=== PATIENT | female | born 1950 | race Caucasian/White ===

== ENCOUNTER → 2024-06-26 07:58 | Outpatient (REF) | payer MEDICARE, OTHER, SELFPAY ==
[2024-06-26 08:57] LABS: % Basophils 1.8 % (0-2); % Eosinophils 4.4 % (0-6); % Immature Granulocytes 1.8 % (0-0.5); % Lymphocytes 27.2 % (20.5-51.1); % Monocytes 8.5 % (1.7-9.3); % Neutrophils 56.3 % (42.2-75.2); Absolute Basophils 0.1 10^3/uL (0-0.2); Absolute Eosinophils 0.2 10^3/uL (0-0.7); Absolute Immature Granulocytes 0.1 10^3/uL (0-0.05); Absolute Lymphocytes 1.1 10^3/uL (1.2-3.4); Absolute Monocytes 0.3 10^3/uL (0.1-0.6); Absolute Neutrophils 2.2 10^3/uL (1.4-6.5); Hematocrit 38.6 % (37.0-47.0); Hemoglobin 12.4 g/dL (12.0-16.0); Mean Corp Hgb Conc. 32.1 g/dL (33.0-37.0); Mean Corpuscular Hgb 29.7 pg (27.0-31.0); Mean Corpuscular Volume 92.3 fL (81.0-99.0); Mean Platelet Volume 9.9 fL (7.4-10.4); Nucleated Red Blood Cells % 0 %; Platelet Count 219 10^3/uL (130-400); Red Blood Cell Count 4.18 10^6/uL (4.20-5.40); Red Cell Dist. Width 13.4 % (11.5-14.5); White Blood Cell Count 3.9 10^3/uL (4.8-10.8)
[2024-06-26 09:31] LABS: ALT (SGPT) 19 U/L (0-35); AST (SGOT) 43 U/L (14-36); Albumin 5.4 g/dl (3.5-5.0); Alkaline Phosphatase 103 U/L (38-126); Blood Urea Nitrogen 18 mg/dl (7-17); Calcium 9.9 mg/dl (8.4-10.2); Carbon Dioxide 26 mmol/L (22-30); Chloride 99 mmol/L (98-107); Glucose 119 mg/dl (70-99); HDL Cholesterol 79 mg/dl; Iron 115 ug/dl (37-170); LDL Cholesterol, Calculated 79 mg/dl; Potassium 4.7 mmol/L (3.5-5.1); Sodium 139 mmol/L (135-145); Total Bilirubin 0.9 mg/dl (0.2-1.3); Total Cholesterol 183 mg/dl (50-199); Total Protein 9.8 g/dl (6.3-8.2); Triglyceride 129 mg/dl (10-149); Very Low Density Lipoprotein 25 mg/dl (0-30); eGFR > 60.00
[2024-06-26 10:07] LABS: Ferritin 31.7 ng/ml (11.1-264.0)
[2024-06-26 11:06] LABS: Microalbumin, Random Urine 3.4 mg/dl (0.6-1.7); Microalbumin/creatinine Ratio 47.8 mg/g
[2024-06-26 11:35] LABS: Percent Saturation 25 % (20-50); Total Iron Binding Capacity 456 ug/dl (265-497)
[2024-06-27 09:27] LABS: Glycohemoglobin (HgbA1c) 5.8 % (4.0-5.6)
== END ==
LOC: REG 07:58
PROVIDERS: ATTENDING PHYSICIAN Family Medicine
DX: E78.2 Mixed hyperlipidemia (principal); D64.89 Other specified anemias; E11.9 Type 2 diabetes mellitus without complications; A08.4 Viral intestinal infection, unspecified
CPT/HCPCS: 36415; 80053; 80061; 82043; 82570; 82728; 83036; 83540; 83550; 85025

== ENCOUNTER → 2024-07-26 08:04 | Outpatient (REF) | payer MEDICARE, OTHER, SELFPAY ==
[2024-07-26 09:14] LABS: % Basophils 1.3 % (0-2); % Eosinophils 4.3 % (0-6); % Immature Granulocytes 0.3 % (0-0.5); % Lymphocytes 29.6 % (20.5-51.1); % Monocytes 7.5 % (1.7-9.3); Absolute Basophils 0.1 10^3/uL (0-0.2); Absolute Eosinophils 0.2 10^3/uL (0-0.7); Absolute Lymphocytes 1.1 10^3/uL (1.2-3.4); Absolute Monocytes 0.3 10^3/uL (0.1-0.6); Absolute Neutrophils 2.1 10^3/uL (1.4-6.5); Hematocrit 35.1 % (37.0-47.0); Hemoglobin 11.1 g/dL (12.0-16.0); Mean Corp Hgb Conc. 31.6 g/dL (33.0-37.0); Mean Corpuscular Hgb 29.1 pg (27.0-31.0); Mean Corpuscular Volume 92.1 fL (81.0-99.0); Nucleated Red Blood Cells % 0 %; Platelet Count 194 10^3/uL (130-400); Red Blood Cell Count 3.81 10^6/uL (4.20-5.40); White Blood Cell Count 3.8 10^3/uL (4.8-10.8)
[2024-07-26 09:57] LABS: ALT (SGPT) 15 U/L (0-35); AST (SGOT) 36 U/L (14-36); Albumin 4.3 g/dl (3.5-5.0); Alkaline Phosphatase 98 U/L (38-126); Blood Urea Nitrogen 13 mg/dl (7-17); Carbon Dioxide 28 mmol/L (22-30); Chloride 103 mmol/L (98-107); Creatine Phosphokinase 93 U/L (30-135); Glucose 108 mg/dl (70-99); Potassium 4.5 mmol/L (3.5-5.1); Sodium 140 mmol/L (135-145); Total Bilirubin 0.8 mg/dl (0.2-1.3); Total Protein 7.9 g/dl (6.3-8.2); eGFR > 60.00
[2024-07-26 12:44] LABS: Erythrocyte Sed Rate 42 mm/hour (0-20)
== END ==
LOC: REG 08:04
PROVIDERS: ATTENDING PHYSICIAN Family Medicine
DX: M33.22 Polymyositis with myopathy (principal); D64.89 Other specified anemias; R77.9 Abnormality of plasma protein, unspecified
CPT/HCPCS: 36415; 80053; 82550; 84155; 84165; 85025; 85652

== ENCOUNTER → 2024-07-30 10:58 | Outpatient (REF) | payer MEDICARE, OTHER, SELFPAY | LOC: HWRCS 10:58 | PROVIDERS: ATTENDING PHYSICIAN Family Medicine | DX: I35.0 Nonrheumatic aortic (valve) stenosis (principal) | CPT/HCPCS: 93306 ==

== ENCOUNTER 2024-12-10 22:28 | Inpatient (IN) | payer MEDICARE, OTHER, SELFPAY ==
[2024-12-10 16:34] VITALS: BP 169/68
[2024-12-10 17:06] LABS: Hematocrit 31.3 % (37.0-47.0); Hemoglobin 10.4 g/dL (12.0-16.0); Mean Corp Hgb Conc. 33.2 g/dL (33.0-37.0); Mean Corpuscular Volume 88.4 fL (81.0-99.0); Nucleated Red Blood Cells % 0 %; Platelet Count 236 10^3/uL (130-400); Red Cell Dist. Width 14.3 % (11.5-14.5)
[2024-12-10 17:17] LABS: ALT (SGPT) 17 U/L (0-35); AST (SGOT) 36 U/L (14-36); Albumin 4.3 g/dl (3.5-5.0); Alkaline Phosphatase 89 U/L (38-126); Blood Urea Nitrogen 17 mg/dl (7-17); Calcium 9.2 mg/dl (8.4-10.2); Carbon Dioxide 25 mmol/L (22-30); Chloride 100 mmol/L (98-107); Glucose 154 mg/dl (70-99); Potassium 4.5 mmol/L (3.5-5.1); Sodium 133 mmol/L (135-145); Total Protein 7.7 g/dl (6.3-8.2); eGFR > 60.00
[2024-12-10 17:27] LABS: Troponin I 0.021 ng/ml
--- NOTE | 2024-12-10 18:51 | ED.GENMED ---
History of Present Illness
General
Chief Complaint: Breathing Problem
Source: patient
Exam Limitations: none
Time Seen by Provider: 12/10/24 18:25
History of Present Illness
History of Present Illness:
74-year-old female type II diabetic on metformin hypertensive on ZEYAD inhibitor, hyperlipidemia, no history of A-fib nor CAD nor clotting, presents with shortness of breath, started a few nights ago recently was on a 4 to 5-hour car trip lower
extremity edema left greater than right with pain in her left calf no fevers no cough
Past History
Past History
ED Past Medical History: HTN, Hypercholesterolemia and NIDDM; Negative Arrthythmia
ED Past Surgical History: Orthopedic
Social History
Tobacco: Other
Alcohol: None
Drug: None
Living: with family
Employment: Retired
Review of Systems
Review of Systems
All Other Systems: Not applicable
Constitutional: Denies fever or fatigue
Respiratory: Reports trouble breathing
Cardiac: Reports chest pain
ABD/GI: Reports no symptoms
: Reports no symptoms
Musculoskeletal: Reports muscle stiffness and edema
Endocrine: Reports no symptoms
Hematologic/Lymphatic: Reports no symptoms
Psychiatric: Reports no symptoms
Phy Exam
Physical Exam
Physical Exam:
Physical Exam
General: Elderly female sitting upright
Neck: No jaundice
Heart: Regular systolic ejection murmur
Lungs: no acute respiratory distress. Crackles at the bases
Abdomen: Nontender
Neuro: alert and oriented. no focal neurological deficits
Skin: no rash
Psychiatric: well kept. interactive and cooperative
Extremities: Edema left greater than
Scores
Heart Failure Risk
Heart Failure Risk Score: Yes
History of Stroke or TIA: No
History of intubation for respiratory distress: No
Heart rate on ED arrival >/= 110: No
SaO2 <90% on arrival on room air: No
HR >/=110 during 3min walk test (or too ill to perform test): Yes
ECG has acute ischemic changes: No
Urea >/=12mmol/L (BUN 33.6mg/dL): No
Serum CO2>/=35mmol/L: No
Troponin I or T elevated to GA Level (0.4mg/dL): No
NT-proBNP >/=5,000ng/L (5,000pg/ml): No
HF Risk Score: 2
Admission Status: MEDIUM RISK 9.2% Consider observation or discharge to home with homecare & f/u visit to PCP/[employer], or SNF for treatment
Course
Orders/Labs/Results
Orders:
Orders
12/10/24 16:41
EKG [Electrocardiogram (*1)] Urgent
Reason for Study: Chest Pain
12/10/24 16:42
CT Chest PE Study Urgent
Comment:
Reason For Exam: pleuritic R CP
EKG- Treatment ONCE
12/10/24 16:49
Complete Blood Count/With Diff Urgent
Comprehensive Metabolic Panel Urgent
NT-proBNP Urgent
Comment: ADD ON
Troponin I Urgent
12/10/24 18:37
Add On- LAB Urgent
Tests Added?: pBNP
US Periph Venous LOWER Ext LT Urgent
Comment:
Reason For Exam: swelling
12/10/24 20:26
Electrocardiogram (*1) Urgent
Reason for Study: Shortness of Breath
EKG- Treatment ONCE
12/10/24 20:45
Furosemide [Lasix] 40 mg IV NOW STA
12/10/24 22:13
Admit/Transfer Patient As Directed
Co-Sign Provider:
Level of Care: Inpatient admission
Assign to:: Telemetry
Physician / Group: Pablito Churchill
Diagnosis: acute heart failure, atrial fibrillation
Reason for Telemetry: Acute Heart Failure
Date to Stop Telemetry: 12/13/24
Time to Stop Telemetry: 11:00
Reason for Hospitalization: acute heart failure, atrial fibrillation
Expected length of stay greater than two midnights?: Yes
ELOS- Estimated Length of Stay in days: 3
I certify the patient meets the requirements for IP care: Yes
PRN Pain Medication Management As Directed
May give lesser potent ordered pain med per pt: Yes
preference::
Protocol:: Medication orders for pain may be administered in a
manner that supports deferring to patient preference
when the pt is:
- Requesting an ordered lesser potent pain medication.
Least to most potent pain medications are defined
as: acetaminophen < NSAID < tramadol < opioids
(morphine, oxycodone, hydromorphone).
- Requesting a lesser dose of the same medication IF
ORDERED.
- Requesting a less intrusive route of administration
if both routes are prescribed by the provider (PO <
IV).
12/10/24 22:14
Code Status As Directed
Resuscitation Status: Full Code
12/13/24 11:00
DC Protocol for Telemetry ONCE
Abnormal Lab Results
12/10/24
16:49
WBC 4.7 L 10^3/uL
(4.8-10.8)
RBC 3.54 L 10^6/uL
(4.20-5.40)
Hgb 10.4 L g/dL
(12.0-16.0)
Hct 31.3 L %
(37.0-47.0)
Sodium 133 L mmol/L
(135-145)
Glucose 154 H mg/dl
(70-99)
12/10/24 16:49
12/10/24 16:49
Vital Signs
Initial and Last Documented VS:
Initial Vital Signs
Temp Pulse Resp BP Pulse Ox
97.7 F 83 18 169/68 99
12/10/24 16:34 12/10/24 16:34 12/10/24 16:34 12/10/24 16:34 12/10/24 16:34
Last Documented Vital Signs
Temp Pulse Resp BP Pulse Ox
97.7 F 86 13 151/58 98
12/10/24 16:34 12/10/24 20:56 12/10/24 20:30 12/10/24 20:56 12/10/24 19:30
MDM/Problems Addressed
Differential Diagnosis Includes:
DVT PE question airway failure and pneumothorax pneumonia heart failure
MDM/Problems Addressed:
Shortness of breath leg swelling
Chronic conditions affecting care: DM and HTN
Acute Exacerbation and/or Progression of Chronic Illness: DM and HTN
*Radiology
Radiology exam reviewed: radiology read reviewed
*Pulse Oximetry
SaO2: 99
Oxygen Mode of Delivery: Room air
Patient hypoxic: no
*Critical Care Note
Total Time (30-74mins, 75-104mins- exclusive of procedures): Not Applicable
Update Note
Update Note:
8:[address] chest report noted Doppler report noted troponin noted proBNP noted EKG noted
I am not 100% certain but suspect she is in A-fib with a controlled rate here, does have a murmur prior echo noted has slowly progressive AAS at this point will start on diuretic consideration for anticoagulation low threshold to admit
ED Attending Note
-
Portions of this chart may have been created with voice recognition software.� Occasional wrong word or��sound alike� substitutions may have occurred due to the inherent limitations of voice recognition software.
Discharge Plan
Departure
Patient Disposition: Admit
Date of Disposition: 12/10/24
Time of Disposition: 20:47
Admit to: Telemetry
Presentation/result/management discussed w/ accepting MD/DO: Hospitalist
Patient with high blood pressure during this ER visit?: No
Condition: Good
Covid-19: Not Applicable
Discharge Problem:
Congestive heart failure (CHF), Atrial fibrillation due to heart valve disorder
Interventions
Interventions:
*Risk Screen - Suicide Last Done: 12/10/24 16:34
*General Assessment Last Done: 12/10/24 16:34
*Neglect/Abuse Screening Last Done: 12/10/24 20:33
*ED- Fall Risk Assessment Last Done: 12/10/24 20:33
*ED COVID-19 Vaccine History Last Done: 12/10/24 16:34
ED- Cardiac Assessment Last Done: 12/10/24 20:33
ED- Pulmonary Assessment Last Done: 12/10/24 20:33
[2024-12-10 19:24] VITALS: BP 134/45
[2024-12-10 19:29] VITALS: BMI 30.5
[2024-12-10] MEDS: LASIX 40 MG IV (20:56)
[2024-12-10 20:57] VITALS: BP 151/58
--- NOTE | 2024-12-10 21:20 | HPS.HSE ---
Family Physician
-
Family Physician: Paul Plascencia
Chief Complaint
-
shortness of breath
History of Present Illness
Patient is a 74-year-old female with past medical history significant for hypertension, hyperlipidemia, DM II and GERD who presented to [facility] ED for evaluation of shortness of breath. Patient reports being woken from her sleep on Tuesday night into
Tuesday with shortness of breath, inability to take a deep breath and right sided chest pain that radiated to right shoulder and jawline. She reports symptoms took some time to resolve but she took weekend to just relax. She reports recent trip
with friends and spending 4-5 hours in the car. Reported bilateral lower extremity edema, L>R, dry cough for a few weeks and a 5-6 pound weight gain over the past few weeks. Patient denies any person history of heart failure and/or atrial
fibrillation. When questioned patient states that she has had palpitations intemittently at times, she believes when it happens after drinking wine. Patient denies any recent illness, fever, chills, nausea, vomiting, dizziness or changes in bowel or
urine.
Medical History
Past Medical History
Past Medical History: Reports Other
Additional Past Medical History:
hypertension
hyperlipidemia
DM II
GERD
Hx polymyositis
Past Surgical History: Reports Other
Additional Past Surgical History:
ORIF left hip
ORIF right elbow
Hardware removal right elbow
MOHS left hand - sqamous scell 11/2024
Social History
Tobacco: Non-smoker
Alcohol: Occasional
Drug: None
Living: Alone
Employment: Retired
Family History
Family History: Other (Father: DM, CHF; Mother: cirrhosis; Sister: ETOH dependency; Brother: CHF, metastatic melanoma )
Allergies / Home Medications
Allergies reflects when Allergies were last updated in [facility].
Home Medications with original date entered in [facility]
Allergy/Medication List:
Allergies
Allergy/AdvReac Type Severity Reaction Status Date / Time
No Known Allergies Allergy Verified 12/10/24 16:39
Home Medications
atorvastatin 40 mg tablet 40 mg PO DAILY 04/16/18
pioglitazone 15 mg-metformin 500 mg tablet (Actoplus MET) 1 tab PO BID 04/16/18
lisinopril 10 mg tablet 10 mg PO DAILY 12/10/24
metformin 500 mg tablet 500 mg PO BID 12/10/24
omeprazole 20 mg tablet,delayed release 20 mg PO DAILY 12/10/24
Review of Systems
-
History Source: Patient
Constitutional: Reports Weight Gain and Sleep Disturbance
EENT: Reports No Symptoms
Respiratory: Reports Cough and Trouble Breathing (dyspnea at rest, hard to take deep breath )
Cardiac: Reports Chest Pain (radiating to right shoulder and jaw line )
Abdomen/GI: Reports No Symptoms
: Reports No Symptoms
Musculoskeletal: Reports No Symptoms
Skin: Reports No Symptoms
Neurological: Reports No Symptoms
Endocrine: Reports No Symptoms
Hematologic/Lymphatic: Reports No Symptoms
Psych: Reports No Symptoms
Physical Exam
Vital Signs
Vital Signs
Temp Pulse Resp BP Pulse Ox
97.7 F 86 13 151/58 98
12/10/24 16:34 12/10/24 20:56 12/10/24 20:30 12/10/24 20:56 12/10/24 19:30
Physical Exam
General: Well Developed, Well Nourished, No Apparent Distress and Obese
HEENT: NormoCephalic, Moist mucous membranes and Atraumatic
Respiratory: Clear, Crackles and Non Labored Respirations
Cardiac: Irregular Rhythm and Murmur
GI: Soft, Non Tender, Non Distended and Normal Bowel Sounds
Rectal: Deferred by Provider
Musculoskeletal: No Clubbing, No Cyanosis, Edema, Left Lower Extremity (mild ) and Edema, Right Lower Extremity (mild)
Skin: Warm, Rash and IV/Catheter Site
Neuro: Awake, AO x 3 and Nonfocal/grossly intact
Psych: Calm and Intact Judgment/Insight
Laboratory Results
-
12/10/24 16:49
12/10/24 16:49
Laboratory Results
Total Bilirubin 1.0 mg/dl (0.2-1.3) 12/10/24 16:49
AST 36 U/L (14-36) 12/10/24 16:49
ALT 17 U/L (0-35) 12/10/24 16:49
Alkaline Phosphatase 89 U/L (38-126) 12/10/24 16:49
Troponin I 0.021 ng/ml 12/10/24 16:49
Data Reviewed
-
CT Scan: Report Reviewed by me (Chest: 1. No evidence of pulmonary embolism. 2. No significant acute abnormality identified in the chest, as described above. 3. Mild bibasilar subpleural fibrotic change. Findings could reflect early changes of
chronic interstitial lung disease.)
Ultrasound: Report Reviewed by me (LLE: 1. No evidence of deep venous thrombosis in the left lower extremity as described above.)
Lab Data: Labs Reviewed by me (hgb 10.4, hct 31.3, Na+133, trop 0.021, pBNP 2590)
Impression/Plan
-
IMPRESSION/PLAN:
#shortness of breath likely 2/2 acute heart failure
hgb 10.4, hct 31.3, Na+133, trop 0.021, pBNP 2590
LLE US: 1. No evidence of deep venous thrombosis in the left lower extremity as described above.
Chest CT: 1. No evidence of pulmonary embolism.
2. No significant acute abnormality identified in the chest, as described above.
3. Mild bibasilar subpleural fibrotic change. Findings could reflect early changes of chronic interstitial lung disease.
EKG: ATRIAL FIBRILLATION
NONSPECIFIC ST AND T WAVE ABNORMALITY
- Admit to telemetry
- Consult Cardiology
- IV Lasix daily
- daily weights
- I & Os
#hypertension
- continue lisinopril
#hyperlipidemia
- continue atorvastatin
#DM II
- hold metformin
- AccuCheck AC & HS
- SSI
#GERD
- continue omeprazole
Code status: full code
DVT Prophylaxis: Lovenox sq
[2024-12-10 22:00] VITALS: BP 138/56
--- NOTE | 2024-12-10 22:49 | W.PN.UPDATE ---
Update Note
Progress Note Update
This note serves as an addendum to the H&P by welt slasher NATALIYA
Annemarie Sims
HPI
74F HX hypertension, hyperlipidemia, DM II and GERD een at ER
- evaluation of shortness of breath.
- woken from her sleep on Tuesday night into Tuesday with shortness of breath,
- inability to take a deep breath and right sided chest pain that radiated to right shoulder and jawline.
- recent trip with friends and spending 4-5 hours in the car.
- Reported bilateral lower extremity edema, L>R,
- dry cough for a few weeks a
- 5-6 pound weight gain over the past few weeks. P
Patient denies any person history of heart failure and/or atrial fibrillation.
Relevant VS
PE
Gen: NAD
Neck: supple
Lungs: Crackles and Non Labored Respirations
Cor: Irregular Rhythm and Murmur
Abdomen: Soft, Non Tender, Non Distended
VIDEO SOFTWARE ENGINEER: NFND
MS: Edema, Left Lower Extremity (mild ) and Edema, Right Lower Extremity (mild)
Relevant Data
LLEx US
No evidence of deep venous thrombosis in the left lower extremity as described above.
CT Chest PE Study
1. No evidence of pulmonary embolism.
2. No significant acute abnormality identified in the chest, as described above.
3. Mild bibasilar subpleural fibrotic change. Findings could reflect early changes of chronic interstitial lung disease.
07/30/24 TTE
LVEF s 50-55%.
Normal right ventricular size and function.
No mitral regurgitation is seen.
Calcified aortic valve.
Peak/mean gradients across the aortic valve are 37/20 mmHg.
The aortic valve by the Continuity equation is calculated at 1.1cm2.
Mild aortic valve stenosis. No aortic regurgitation is seen.
Trace tricuspid regurgitation.
Estimated pulmonary artery pressure of 20-25 mmHg. Assuming a right atrial pressure of 3 mmHg.
Compared to prior study 02/02/2023 aortic valve area previously calculated at 0.8 to 1 cm2 now 1.1 cm2. Aortic valve gradients have increased from prior peak/mean 25/17 mmHg to 37/20 mmHg.
ASSESSMENT & PLAN
Suspect new onset acute HF presumed HFpEF
Vol expansion
trop 0.021, pro BNP 2590
- IV Lasix
- on [employer] Lisinopril
- daily wt
- DCA card consult
A Fib - presumed new onset
- VR 70s
- NEG CTC for acute PE
- Await Card Evaluation
Bn HTN
- continue lisinopril
HLD
- continue atorvastatin
T2DM
- hold metformin
- AccuCheck AC & HS
- SSI
DVT Px: LMWH
Full code
IP TLM
[2024-12-11] VITALS (10 sets, daily range): BP systolic 92–140; BP diastolic 45–85; BMI 30.5; BMI 30.7
[2024-12-11] MEDS: TYLENOL 650 MG PO ×4 (00:04→20:29)
[2024-12-11 00:13] LABS: Glucose - Point of Care 128 mg/dl (70-99)
--- NOTE | 2024-12-11 02:27 | DOWNTIME ---
There was a Animating Touch Client Stave Hewer Downtime on 12/11/2024 from 0100 to 12/11/2024 at 0220. Downtime documentation of patient's care, including medication administrations, has been reconciled in the electronic record per guidelines. Refer to the
patient's paper chart under the miscellaneous tab to see printed paper medication records and downtime forms.
[2024-12-11 05:57] LABS: Hematocrit 29.6 % (37.0-47.0); Hemoglobin 9.7 g/dL (12.0-16.0); Mean Corp Hgb Conc. 32.8 g/dL (33.0-37.0); Mean Corpuscular Volume 87.8 fL (81.0-99.0); Platelet Count 236 10^3/uL (130-400); Red Cell Dist. Width 14.3 % (11.5-14.5)
[2024-12-11 06:31] LABS: Blood Urea Nitrogen 19 mg/dl (7-17); Calcium 9.4 mg/dl (8.4-10.2); Carbon Dioxide 30 mmol/L (22-30); Chloride 100 mmol/L (98-107); Estimated Creatinine Clearance 64 ml/min; Glucose 114 mg/dl (70-99); HDL Cholesterol 70 mg/dl; LDL Cholesterol, Calculated 72 mg/dl; Magnesium 1.5 mg/dl (1.6-2.3); Potassium 4.2 mmol/L (3.5-5.1); Sodium 138 mmol/L (135-145); Very Low Density Lipoprotein 16 mg/dl (0-30); eGFR > 60.00
[2024-12-11 06:58] LABS: TSH 4.11 uIU/ml (0.47-4.68)
--- NOTE | 2024-12-11 07:23 | EDRN ---
this RN called the receiving unit and notified them that paper report was going to be tubed up
--- NOTE | 2024-12-11 07:55 | W.PN.HOSP.TC ---
Today's Communication/Plan
-
see PN
Assessment / Plan
Assessment / Plan
A/P:
#Acute on chronic HFpEF exacerbation
#R chest pain, non-cardiac
#New onset paroxysmal Afib
#Moderate-severe
Lasix, daily weight, follow Cr and electrolytes
Low sodium diet, fluid restriction
Cardio consult
Echo
follow trops
as per [id number] (at least 4) - will need anticoagulation - defer to card
HR well controlledoff meds
TSH WNL
Chest CT w/o evidence of VTE, concern fo early changes ILD - pulm consult as outpatient
#Hypomagnesemia
replete
#Anemia, acute on chronic
#Chronic leukopenia
check FOBT before initiation of AC
anemia w/u for deficiencies
#DM type 2 with unspecified complications
Insulin SS, Accuchekcs, DM diet, check HgbA1c
Stop Pioglitazone
#GERD
#HLD
#Essential HTN
cont home meds
DVT ppx lovenox
Full code
I have spent at least 58min reviewing chart, test results, communication with consultants and providing direct patent care
Anticipated Discharge: 24 - 48 hours
Subjective/Interval History
-
Date of Service: December 11, 2024
Objective Data
-
Labs:
Laboratory Results
12/11/24
05:50
WBC 3.7 L
Hgb 9.7 L
Hct 29.6 L
Plt Count 236
Sodium 138
Potassium 4.2
Chloride 100
Carbon Dioxide 30
BUN 19 H
Creatinine 0.8
Glucose 114 H
Calcium 9.4
Vital Signs:
Vital Signs
Temp Pulse Resp BP Pulse Ox
98.5 F 50 17 105/85 98
12/11/24 07:19 12/11/24 07:19 12/11/24 07:19 12/11/24 07:19 12/11/24 07:20
Review of Systems
-
History Source: Patient
All other systems: Reviewed and negative
Physical Exam
-
General: No Apparent Distress
HEENT: Normocephalic
Respiratory: Crackles
Musculoskeletal: No Edema
Neuro: Awake, Alert, Oriented and AO x 3
[2024-12-11 08:08] LABS: Troponin I 0.017 ng/ml
--- NOTE | 2024-12-11 08:09 | EDRN ---
this RN saw the order for 4gram Mag, pts mag is 4.9, this RN reached out to the ordering provider Dr. Crump regarding mag order to confirm that he wants it administered
[2024-12-11 08:24] LABS: Reticulocyte Count 1.9 % (0.4-2.8)
[2024-12-11 08:37] LABS: Glucose - Point of Care 120 mg/dl (70-99)
[2024-12-11] MEDS: MAGNESIUM SULFATE 100 IV (08:39)
[2024-12-11 08:41] LABS: Hepatitis C Antibody Negative (Negative)
[2024-12-11 08:45] LABS: Iron 62 ug/dl (37-170)
[2024-12-11 08:51] LABS: Total Iron Binding Capacity 411 ug/dl (265-497)
[2024-12-11] MEDS: LIPITOR 40 MG PO (08:56)
[2024-12-11] MEDS: ZESTRIL 10 MG PO (08:56)
[2024-12-11] MEDS: PROTONIX 40 MG PO (08:56)
[2024-12-11] MEDS: LASIX 40 MG IV (08:56)
[2024-12-11 09:11] LABS: Ferritin 52.2 ng/ml (11.1-264.0)
[2024-12-11 09:35] LABS: Glycohemoglobin (HgbA1c) 5.8 % (4.0-5.6)
[2024-12-11 09:43] LABS: Folate 9.3 ng/ml (2.76-20); Vitamin B12 197 pg/ml (239-931)
[2024-12-11] MEDS: CYANOCOBALAMIN 1000 MCG IM (11:45)
[2024-12-11 14:00] LABS: Troponin I 0.021 ng/ml
--- NOTE | 2024-12-11 14:10 | CON.CAR ---
Addendum entered and electronically signed by Edmund De La Rosa MD 12/11/24 16:12:
Patient seen and examined
Reviewed LG Castillo's note assessment
Agree with LG Castillo's plan
Onset likely on 04 December although may have been for a few weeks prior. Atrial fibrillation is persistent on telemetry and rate controlled. She feels fatigued [place] exertion but overall tolerable.
Examination:
HEENT normocephalic atraumatic
JVP 6
Cor irregularly irregular rate no murmurs rubs gallops
Lungs clear
Abdomen soft nontender positive bowel sounds
No extremity edema
Nonfocal neurologically
Assessment:
Presentation with SOB, R sided chest discomfort
Acute HFpEF
Atrial fibrillation, new diagnosis of unclear duration
Mild by echo 07/2024
Hypomagnesemia
Anemia
HTN
Hyperlipidemia
Diabetes
GERD
Echo 07/30/2024: EF 50 to 55%, moderate concentric LVH, mild with peak/mean gradients 37/20 mmHg, TITO 1.1 cm�, trace TR, PAP 20 to 25 mmHg
Plan:
- Patient is a 74-year-old female who presents with shortness of breath and right-sided chest discomfort. Found to be in acute heart failure and also with new A-fib of unclear duration
- Currently rate controlled in A-fib. Will add Toprol 25 XL mg daily
- [id number] score of 6 for age, female, HTN, CHF, DM. she denies recent falls. uses cane for ambulation. she is noted to have anemia, possibly acute on chronic. hemoccult test pending. will plan to initiate IV heparin and will transition to
eliquis prior to DC if tolerating. ordered for feosol.
- would consider for OP cardioversion if remains in afib at office visit in 3 weeks. She prefers outpatient cardioversion compared to inpatient cardioversion and given onset it is possible she will convert back to sinus rhythm by the time she sees
us in the office.
- TSH WNL
- would continue IV lasix, responding well. patient reports breathing significantly improved. Cr stable. was not on diuretic prior to admission, will plan to transition to Lasix 20 mg daily po likely in AM
- CHF education
- repeat echo to reeval valve disease
- trop detectable but within normal range. R sided chest discomfort has resolved with diuresis. EKG afib with NSSTS.
- replete mag and B12
- d/w nursing
Original Note:
Consultation
Consultation Request
Date/Time Consultation Performed: 12/11/24
Requesting Provider: Dr. Churchill
Performing Provider: Julita Castillo PA-C for Dr. De La Rosa
Reason for Consultation: CHF, afib
Medical History
-
Chief Complaint: SOB
History of Present Illness:
Patient is a 74-year-old female with past medical history of hypertension, hyperlipidemia, diabetes, GERD who presented to [facility] due to complaints of shortness of breath. She reports since Tuesday she has noted
shortness of breath and right-sided shoulder pain at times up to her ear with taking a deep breath as well as variable lower extremity edema. She reports it felt as though she could not take a deep breath in. Reports has been taking Advil without
significant relief upon arrival to emergency room was noted to be in A-fib with controlled ventricular response, new diagnosis of unclear duration. She reports occasional feeling of fluttering, however nothing consistent. proBNP 2590. Chest CT
without evidence of PE or significant acute abnormality in the chest. Cardiology consulted for evaluation. She was given dose of IV Lasix last evening with good response. She had prior echo which showed mild and preserved EF ordered by primary
care physician 07/2024.
PMH:
HTN
Hyperlipidemia
Diabetes
GERD
Past Medical History
Past Medical History: Other (in HPI)
Social History
Tobacco: Former Smoker (remote)
Alcohol: Occasional
Living: Alone
Employment: Retired
Family History
Family History: CAD and Other (afib in brother)
Allergies / Home Medications
Allergy/AdvReac Type Severity Reaction Status Date / Time
No Known Allergies Allergy Verified 12/10/24 16:39
�Medication �Instructions �Recorded �Confirmed �Type
atorvastatin 40 mg tablet 40 mg PO DAILY High Cholesterol 04/16/18 12/10/24 History
pioglitazone 15 mg-metformin 500 1 tab PO BID Diabetes 04/16/18 12/10/24 History
mg tablet (Actoplus MET)
lisinopril 10 mg tablet 10 mg PO DAILY Blood Pressure 12/10/24 12/10/24 History
metformin 500 mg tablet 500 mg PO BID Diabetes 12/10/24 12/10/24 History
omeprazole 20 mg tablet,delayed 20 mg PO DAILY Gastrointestinal 12/10/24 12/10/24 History
release Issue
Review of Systems
-
History Source: Patient
All other systems: Negative unless noted
Physical Exam
Vital Signs
Temp Pulse Resp BP Pulse Ox
98.5 F 85 16 121/52 100
12/11/24 11:16 12/11/24 11:16 12/11/24 11:16 12/11/24 11:16 12/11/24 11:16
Lab Results
12/11/24 05:50
12/11/24 05:50
Troponin I 0.021 ng/ml 12/11/24 13:18
Nip-L-Zdfyxdndhzt Pept 2590 pg/ml 12/10/24 16:49
Physical Exam
General: No Apparent Distress and Comfortable
HEENT: Normocephalic, Anicteric and Moist Mucous Membranes
Respiratory: Clear and Non Labored Respirations
Cardiac: S1/S2, Irregular Rhythm and Murmur
GI: Soft, Non Tender, Non Distended and Normal Bowel Sounds
Musculoskeletal: No Clubbing, No Cyanosis and Edema (1+ of LLE, trace of RLE)
Skin: Warm and Dry
Neuro: AO x 3
Impression / Plan
-
Primary Machine Engraver: none prior to admission
Assessment:
Presentation with SOB, R sided chest discomfort
Acute HFpEF
Atrial fibrillation, new diagnosis of unclear duration
Mild by echo 07/2024
Hypomagnesemia
Anemia
HTN
Hyperlipidemia
Diabetes
GERD
Echo 07/30/2024: EF 50 to 55%, moderate concentric LVH, mild with peak/mean gradients 37/20 mmHg, TITO 1.1 cm�, trace TR, PAP 20 to 25 mmHg
Plan:
- Patient is a 74-year-old female who presents with shortness of breath and right-sided chest discomfort. Found to be in acute heart failure and also with new A-fib of unclear duration
- Currently rate controlled in A-fib. Will add Toprol 25 mg daily
- [id number] score of 6 for age, female, HTN, CHF, DM. she denies recent falls. uses cane for ambulation. she is noted to have anemia, possibly acute on chronic. hemoccult test pending. will plan to initiate IV heparin and will transition to
eliquis prior to DC if tolerating. ordered for feosol.
- would consider for OP cardioversion if remains in afib at office visit in 3 weeks
- TSH WNL
- would continue IV lasix, responding well. patient reports breathing significantly improved. Cr stable. was not on diuretic prior to admission, will plan to transition to po likely in AM
- CHF education
- repeat echo to reeval valve disease
- trop detectable but within normal range. R sided chest discomfort has resolved with diuresis. EKG afib with NSSTS.
- replete mag and B12
- d/w nursing
Data Reviewed
-
EKG: Tracing Personally Visualized and interpreted
Radiology: Report Reviewed by me
Medical Tests (Nuc Med, Echo etc): Report Reviewed by me
Labs: Labs Reviewed by me
Old Records: Reviewed
[2024-12-11 14:46] LABS: Glucose - Point of Care 120 mg/dl (70-99)
[2024-12-11] MEDS: TOPROL XL 25 MG PO (17:42)
[2024-12-11] MEDS: HEPARIN 25000 UNITS/250 ML IV (17:42)
[2024-12-11 18:09] LABS: APTT 40.3 Sec (23.4-35.0)
[2024-12-11 18:34] LABS: Glucose - Point of Care 123 mg/dl (70-99)
[2024-12-11 21:31] LABS: Glucose - Point of Care 171 mg/dl (70-99)
[2024-12-11] MEDS: MELATONIN 10 MG PO (23:37)
[2024-12-12 00:24] LABS: APTT > 200 Sec (23.4-35.0)
[2024-12-12 03:40] VITALS: BP 114/82
[2024-12-12 06:00] VITALS: BMI 30.8
[2024-12-12 07:10] VITALS: BP 125/54
[2024-12-12 08:00] LABS: Glucose - Point of Care 126 mg/dl (70-99)
[2024-12-12] MEDS: TOPROL XL PO (08:43)
[2024-12-12] MEDS: TOPROL XL 12.5 MG PO (08:44)
[2024-12-12] MEDS: LIPITOR 40 MG PO (08:44)
[2024-12-12] MEDS: FEOSOL 325 MG PO (08:44)
[2024-12-12] MEDS: PROTONIX 40 MG PO (08:45)
[2024-12-12] MEDS: CYANOCOBALAMIN 1000 MCG IM (08:45)
[2024-12-12] MEDS: ZESTRIL 10 MG PO (08:45)
--- NOTE | 2024-12-12 08:45 | PTCARENOTE ---
Patient reported to this RN that around [id number] this morning she felt a little 'off.' Reviewed telemetry monitoring and noticed around this time that patient appeared to go briefly into a Second Degree HB, Rosalee I. Has normalized since then.
Notified cardiology.
[2024-12-12 09:01] LABS: Hematocrit 29.3 % (37.0-47.0); Hemoglobin 9.8 g/dL (12.0-16.0); Mean Corp Hgb Conc. 33.4 g/dL (33.0-37.0); Mean Corpuscular Volume 87.7 fL (81.0-99.0); Nucleated Red Blood Cells % 0 %; Platelet Count 218 10^3/uL (130-400); Red Cell Dist. Width 14.2 % (11.5-14.5)
[2024-12-12 09:09] LABS: APTT 131.1 Sec (23.4-35.0)
[2024-12-12 09:20] LABS: Blood Urea Nitrogen 34 mg/dl (7-17); Calcium 8.9 mg/dl (8.4-10.2); Carbon Dioxide 23 mmol/L (22-30); Chloride 99 mmol/L (98-107); Estimated Creatinine Clearance 47 ml/min; Glucose 127 mg/dl (70-99); Magnesium 2.5 mg/dl (1.6-2.3); Potassium 3.9 mmol/L (3.5-5.1); Sodium 134 mmol/L (135-145); eGFR 52.08
[2024-12-12] MEDS: LASIX IV (09:26)
[2024-12-12] MEDS: ELIQUIS 5 MG PO ×2 (10:32→20:11)
[2024-12-12] MEDS: LASIX 20 MG PO (10:32)
--- NOTE | 2024-12-12 10:45 | W.PN.CARDCBS ---
Addendum entered and electronically signed by Chava Leong MD 12/12/24 17:56:
I saw and examined the patient on morning rounds.
The Animal Keeper Head's note was reviewed and I agree with the note.
Comment: Briefly, 74-year-old woman presenting with acute heart failure with preserved ejection fraction and atrial fibrillation which is a new diagnosis for her
With IV Lasix overall appears euvolemic on exam
Plan to transition to oral Lasix 20 mg daily continue on discharge
In regards atrial fibrillation, she spontaneously converted and has been maintaining sinus rhythm by review of telemetry
Was started on metoprolol but plan to discontinue this med due to bradycardia and second-degree AV block Mobitz type I seen on telemetry
Transition from IV heparin to Eliquis
Discussed possible EP evaluation as an out patient and consideration of A-fib ablation
Stable for discharge from my perspective, we will sign off, please recall as needed
Original Note:
Today's Communication / Plan
-
Transition to p.o. Lasix
Stop Toprol
Transition IV heparin to Eliquis
CBC and BMP in 1 week
Outpatient cardiac follow-up including EP evaluation to discuss ablation
For possible discharge to home later today versus more likely in a.m.
Impression / Plan
-
Primary Security Developer: none prior to admission
Assessment:
Presentation with SOB, R sided chest discomfort
Acute HFpEF
Atrial fibrillation, new diagnosis of unclear duration, spontaneously converted to SR 12/12/24
Wenckebach
Mild by echo 07/2024
Hypomagnesemia
Anemia
HTN
Hyperlipidemia
Diabetes
GERD
Echo 07/30/2024: EF 50 to 55%, moderate concentric LVH, mild with peak/mean gradients 37/20 mmHg, TITO 1.1 cm�, trace TR, PAP 20 to 25 mmHg
ECHO 12/11/24: EF 60 to 65%, mild concentric LVH, moderate aortic stenosis with peak/mean gradients 44/21 mmHg and TITO 0.8 cm�, not felt to be significant change compared to prior
Plan:
- Melissa presented with shortness of breath and right-sided chest discomfort. Found to be in acute heart failure as well as new A-fib of unclear duration
- She spontaneously converted to sinus rhythm overnight, however with evidence of bradycardia and intermittent Wenckebach. At times she does report feeling some mild dizziness. Will stop Toprol, as when in A-fib remained rate controlled
- Will transition IV heparin to Eliquis. hgb stable overnight at 9.8
- Reports breathing and lower extremity edema much improved. Creatinine bumped to 1.1. Will transition to p.o. Lasix 20 mg daily
- Will need BMP and CBC in 1 week upon discharge
- CHF education reviewed with patient 12/12
- Results of echocardiogram 12/11 reviewed with patient, EF preserved and moderate. We discussed will need continued outpatient echo monitoring of aortic stenosis
- trop detectable but within normal range. R sided chest discomfort has resolved with diuresis.
- For possible discharge later today versus more likely in the a.m.
- Will arrange outpatient cardiac follow-up. Given conduction disease on beta-leandra therapy, suspect A-fib will be best managed with ablation. Discussed in broad strokes, however will discuss more in outpatient setting
-Would also consider for outpatient sleep study
- d/w nursing
Progress Note - Security Developer
Subjective
Date of Service: December 12, 2024
Reports significant improvement in breathing and lower extremity edema. Reports some intermittent dizziness overnight
Objective
Labs:
12/12/24 01:48
12/12/24 08:14
Labs
Hgb 9.8 g/dL (12.0-16.0) L 12/12/24 01:48
Hct 29.3 % (37.0-47.0) L 12/12/24 01:48
Plt Count 218 10^3/uL (130-400) 12/12/24 01:48
APTT 131.1 Sec (23.4-35.0) H 12/12/24 08:14
Sodium 134 mmol/L (135-145) L 12/12/24 08:14
Potassium 3.9 mmol/L (3.5-5.1) 12/12/24 08:14
BUN 34 mg/dl (7-17) H 12/12/24 08:14
Creatinine 1.1 mg/dL (0.6-1.0) H 12/12/24 08:14
Glucose 127 mg/dl (70-99) H 12/12/24 08:14
Troponins
12/10/24 12/11/24 12/11/24
16:49 07:38 13:18
Troponin I 0.021 0.017 0.021
Vital Signs and I&O:
Vital Signs
Temp Pulse Resp BP Pulse Ox
97.8 F 74 16 125/54 99
12/12/24 07:10 12/12/24 10:32 12/12/24 07:10 12/12/24 10:32 12/12/24 07:10
Vital Signs
Temp Pulse Resp BP Pulse Ox
97.8 F 74 16 125/54 99
12/12/24 07:10 12/12/24 10:32 12/12/24 07:10 12/12/24 10:32 12/12/24 07:10
Intake & Output
12/10/24 12/11/24 12/12/24 12/13/24
07:59 07:59 07:59 07:59
Intake Total 922 / 922
Balance 922 / 922
Physical Exam
Physical Exam
GEN: No distress, awake, alert, oriented x3
HEENT: supple, anicteric, mmm, EOMI
LUNGS: CTA bilaterally, no wheezes/rales
CV: Reg, S1/S2, 2/6 syst LSB
ABD: soft, BS+, NT/ND
EXT: No cyanosis, clubbing, edema
NEURO: Gross non-focal
SKIN: Warm, pink, dry. No rash
[2024-12-12 11:10] VITALS: BP 115/81
--- NOTE | 2024-12-12 11:23 | PN.CDI ---
CDI
- -
CDI:
Physician Documentation Request
Admit Date: 12/10/24 22:28
Dear Doctor Alisia,
Please review the following and provide your response in the progress notes.
Clinical Indicators:
- 12/12 Cardiology 'Acute HFpEF'
- 12/11 PN 'Acute on chronic HFpEF exacerbation'
- No pmh heart failure
- per H&P 'bilateral lower extremity edema, L>R, dry cough for a few weeks and a 5-6 pound weight gain over the past few weeks'
- 'Patient denies any person history of heart failure'
Please provide further specificity regarding the most likely acuity of CHF you are evaluating, treating or monitoring.
Acute HFpEF
Acute on chronic HFpEF exacerbation
Other (please specify)
Use of terms such as suspected, likely, concern for, or probable (associated with a specific diagnosis that is being evaluated, monitored, or treated as if it exists) are acceptable and can be coded in the inpatient setting, when documented at the
time of discharge.
Thank you,
Genevieve Cook RN
CDI Specialist
Please use your independent medical judgment in providing your response.
--- NOTE | 2024-12-12 12:39 | W.PN.HOSP.TC ---
Today's Communication/Plan
-
follow BMP in AM, if improving - d/c
Assessment / Plan
Assessment / Plan
74yo F with , chronic Anemia, chronic leukopenia, DM, GERD, HLD, HTN came with onset of SOB, found in new Afib and HFpEF exacerbation. Improved on Lasix, started on ELiquis. BB not tolerated 2/2 bradycardia. Developed transient BHAVIK on diuresis
A/P:
#Acute HFpEF exacerbation (apparently new diagnosis as per card)
#R chest pain, non-cardiac
#New onset paroxysmal Afib
#Moderate-severe
Lasix, daily weight, follow Cr and electrolytes
Low sodium diet, fluid restriction
Cardio consult
Echo: EF 60-65%, moderate to be monitored by card as outpatient. PCP for sleep study
follow trops
as per [id number] - will need anticoagulation - card started Eliquis, plan for outpatient EP study
HR well controlled off meds, BB stopped by cardiology 2/2 bradycardia
TSH WNL
Chest CT w/o evidence of VTE, concern fo early changes ILD - pulm consult as outpatient
#BHAVIK
Cr basline 0.8
most liekyl 2/2 diuresis
switch to oral lasix and follow BMP
#Hypomagnesemia
replete
#Anemia, acute on chronic
#Chronic leukopenia
check FOBT before initiation of AC
anemia w/u for deficiencies
#DM type 2 with unspecified complications
Insulin SS, Accuchekcs, DM diet, check HgbA1c
Stop Pioglitazone
#GERD
#HLD
#Essential HTN
cont home meds
DVT ppx lovenox
Full code
I have spent at least 51min reviewing chart, test results, communication with consultants and providing direct patent care
Anticipated Discharge: Within 24 hours
Subjective/Interval History
-
Date of Service: December 12, 2024
Objective Data
-
Labs:
Laboratory Results
12/12/24 12/12/24
01:48 08:14
WBC 5.0
Hgb 9.8 L
Hct 29.3 L
Plt Count 218
APTT 131.1 H
Sodium 134 L
Potassium 3.9
Chloride 99
Carbon Dioxide 23
BUN 34 H
Creatinine 1.1 H
Glucose 127 H
Calcium 8.9
Vital Signs:
Vital Signs
Temp Pulse Resp BP Pulse Ox
98.4 F 84 18 115/81 100
12/12/24 11:10 12/12/24 11:10 12/12/24 11:10 12/12/24 11:10 12/12/24 11:10
I&O
12/11/24 12/12/24 12/13/24
06:59 06:59 06:59
Intake Total 922 / 922
Balance 922 / 922
Review of Systems
-
History Source: Patient
All other systems: Reviewed and negative
Physical Exam
-
General: No Apparent Distress
HEENT: Normocephalic
Cardiac: Regular Rhythm
GI: Soft, Nontender and Nondistended
Musculoskeletal: No Clubbing, No Cyanosis and No Edema
Neuro: Awake, Alert, Oriented and AO x 3
Psych: Calm
[2024-12-12 12:40] LABS: Glucose - Point of Care 108 mg/dl (70-99)
--- NOTE | 2024-12-12 13:13 | CM ---
CM reviewed chart, patient seen bedside, initial assessment completed. Patient resides independently in a bi-level home, three steps to enter through garage, then eight steps up. Patient reports using a cane for ambulation, also has a RW, raised
toilet seat, walk in shower. Patient reports she has two sons who are supportive and check on her regularly. Patient reports [facility] in past, if needed would like [facility] again. Patient denies SNF hx. PCP Paul Plascencia, pharmacy [facility], confirms
prescription coverage. Patient denies insecurities at home. CM will continue to follow for all discharge planning needs.
Plan; home vs home with VN
[2024-12-12 15:10] VITALS: BP 119/46
[2024-12-12 16:24] LABS: Glucose - Point of Care 97 mg/dl (70-99)
[2024-12-12] MEDS: DULCOLAX 10 MG RECTAL (16:57)
[2024-12-12 19:16] VITALS: BP 128/49
[2024-12-12] MEDS: MELATONIN 10 MG PO (20:24)
[2024-12-12 21:11] LABS: Glucose - Point of Care 151 mg/dl (70-99)
[2024-12-12 23:16] VITALS: BP 104/56
[2024-12-13 03:31] VITALS: BP 112/49
[2024-12-13 05:33] VITALS: BMI 31.0
[2024-12-13 07:00] VITALS: BP 95/59
[2024-12-13 07:05] VITALS: BP 134/54
[2024-12-13 07:07] LABS: Glucose - Point of Care 131 mg/dl (70-99)
[2024-12-13 08:47] LABS: Hematocrit 28.8 % (37.0-47.0); Hemoglobin 9.5 g/dL (12.0-16.0); Mean Corp Hgb Conc. 33.0 g/dL (33.0-37.0); Mean Corpuscular Volume 88.6 fL (81.0-99.0); Platelet Count 263 10^3/uL (130-400); Red Cell Dist. Width 14.3 % (11.5-14.5)
[2024-12-13 09:16] LABS: Blood Urea Nitrogen 28 mg/dl (7-17); Calcium 9.4 mg/dl (8.4-10.2); Carbon Dioxide 26 mmol/L (22-30); Chloride 100 mmol/L (98-107); Estimated Creatinine Clearance 51 ml/min; Glucose 127 mg/dl (70-99); Magnesium 2.2 mg/dl (1.6-2.3); Potassium 4.2 mmol/L (3.5-5.1); Sodium 136 mmol/L (135-145); eGFR 58.39
[2024-12-13] MEDS: LASIX 20 MG PO (09:21)
[2024-12-13] MEDS: FEOSOL 325 MG PO (09:21)
[2024-12-13] MEDS: PROTONIX 40 MG PO (09:24)
[2024-12-13] MEDS: ELIQUIS 5 MG PO (09:24)
[2024-12-13] MEDS: ZESTRIL 10 MG PO (09:24)
[2024-12-13] MEDS: LIPITOR 40 MG PO (09:24)
[2024-12-13] MEDS: CYANOCOBALAMIN 1000 MCG IM (09:24)
[2024-12-13] MEDS: FLUSH (NSS) 1 FLUSH IV (09:27)
--- NOTE | 2024-12-13 09:38 | W.PN.HOSP.TC ---
Today's Communication/Plan
-
dc
Assessment / Plan
Assessment / Plan
74yo F with , chronic Anemia, chronic leukopenia, DM, GERD, HLD, HTN came with onset of SOB, found in new Afib and HFpEF exacerbation. Improved on Lasix, started on ELiquis. BB not tolerated 2/2 bradycardia. Developed transient BHAVIK on diuresis,
that resolved after switching to oral Lasix. Recommneded repeat BMP with PCP in 5-7 days. Also provided detailed instructions on weight monitoring: if overnight >3lbs or in the period of 5 days - >5lbs -talk to PCP to see if extra lasix dose needed,
if drip of weight with same parameters - talk to PCP if dose of lasix to be skipped. Daily AM weight after urination advised. Patient verbalized understanding of the instructions. Medically stable to be d/c home
A/P:
#Acute HFpEF exacerbation (apparently new diagnosis as per card)
#R chest pain, non-cardiac
#New onset paroxysmal Afib
#Moderate-severe
Lasix, daily weight, follow Cr and electrolytes
Low sodium diet, fluid restriction
Cardio consult
Echo: EF 60-65%, moderate to be monitored by card as outpatient. PCP for sleep study
follow trops
as per [id number] - will need anticoagulation - card started Eliquis, plan for outpatient EP study
HR well controlled off meds, BB stopped by cardiology 2/2 bradycardia
TSH WNL
Chest CT w/o evidence of VTE, concern fo early changes ILD - pulm consult as outpatient
#BHAVIK
Cr basline 0.8
most liekyl 2/2 diuresis
switch to oral lasix and follow BMP
#Constipation
laxatives
#Hypomagnesemia
replete
#Anemia, acute on chronic with B12 deficiency
#Chronic leukopenia
replete b12
#DM type 2 with unspecified complications
Insulin SS, Accuchekcs, DM diet, check HgbA1c
Stop Pioglitazone
#GERD
#HLD
#Essential HTN
cont home meds
DVT ppx lovenox
Full code
I have spent at least 36min reviewing chart, test results, communication with consultants and providing direct patent care
Anticipated Discharge: Today
Subjective/Interval History
-
Date of Service: December 13, 2024
Objective Data
-
Labs:
Laboratory Results
12/13/24
07:59
WBC 4.1 L
Hgb 9.5 L
Hct 28.8 L
Plt Count 263 D
Sodium 136
Potassium 4.2
Chloride 100
Carbon Dioxide 26
BUN 28 H
Creatinine 1.0
Glucose 127 H
Calcium 9.4
Vital Signs:
Vital Signs
Temp Pulse Resp BP Pulse Ox
98.0 F 75 16 134/54 97
12/13/24 07:00 12/13/24 07:00 12/13/24 07:00 12/13/24 07:05 12/13/24 07:00
I&O
12/12/24 12/13/24 12/14/24
06:59 06:59 06:59
Intake Total 922 / 922 528 / 528
Balance 922 / 922 528 / 528
Review of Systems
-
History Source: Patient
All other systems: Reviewed and negative
Abdomen/GI: Reports Constipated
Physical Exam
-
General: No Apparent Distress
HEENT: Normocephalic
Respiratory: Clear to Auscultation
GI: Soft, Nontender and Nondistended
Musculoskeletal: No Clubbing, No Cyanosis and No Edema
Neuro: Awake, Alert, Oriented and AO x 3
Psych: Calm
--- NOTE | 2024-12-13 09:48 | W.DCSUMMARY ---
Discharge Summary
Discharge Data
Date of Admission: 12/10/24
Date of Discharge: 12/13/24
-
Pending Results: No
Hospital Course
74yo F with , chronic Anemia, chronic leukopenia, DM, GERD, HLD, HTN came with onset of SOB, found in new Afib and HFpEF exacerbation. Improved on Lasix, started on ELiquis. BB not tolerated 2/2 bradycardia. Developed transient BHAVIK on diuresis,
that resolved after switching to oral Lasix. Recommneded repeat BMP with PCP in 5-7 days. Also provided detailed instructions on weight monitoring: if overnight >3lbs or in the period of 5 days - >5lbs -talk to PCP to see if extra lasix dose needed,
if drip of weight with same parameters - talk to PCP if dose of lasix to be skipped. Daily AM weight after urination advised. Patient verbalized understanding of the instructions. Medically stable to be d/c home. Pioglitazone also was stopped
I have spent at least 36min reviewing chart, test results, communication with consultants and providing direct patent care
Patient was managed for:
#Acute HFpEF exacerbation (apparently new diagnosis as per card)
#R chest pain, non-cardiac
#New onset paroxysmal Afib
#Moderate-severe
#BHAVIK
#Constipation
#Hypomagnesemia
#Anemia, acute on chronic with B12 deficiency
#Chronic leukopenia
#TOYA
#DM type 2 with unspecified complications
#GERD
#HLD
#Essential HTN
Discharge Plan
-
Patient Disposition: Home (Routine Discharge)
Discharge Diagnosis/Procedures: Afib, CHF
Diet: 2 Gram Sodium, Diabetic, Carb Controlled and Restrict fluids to 64 oz
Activity: As tolerated
Driving Restrictions: As prior to admission
Blood Work: BMP/CBC in 1 week
Specialty Instructions: Weigh Daily- Call MD for wt gain/loss 3 lbs overnight/5 lbs in 1 week
Instructions: *[facility] Heart Failure Instructions
Referrals:
Paul Plascencia MD [Family Provider, Family Practice] - in less than 1 week
Referral Note: Sleep study, blood test BMP
Alba Haq CRNP [Specified Professional Personl, Cardiology] - 12/17/24 8:40 am
Referral Note: You have a cardiology follow-up appointment at the [place] office. Please call with questions
Tone Andino MD [Active, Pulmonary Medicine] - in four to six weeks
Referral Note: early ILD
Prescriptions:
New
cyanocobalamin (vitamin B-12) 1,000 mcg capsule
1,000 mcg PO DAILY Qty: 30 0RF
polyethylene glycol 3350 17 gram Powder In Packet
17 g PO DAILYPRN PRN (Reason: Constipation) Qty: 30 0RF
ferrous sulfate [FeroSul] 325 mg (65 mg iron) Tablet
325 mg PO DAILY Qty: 30 0RF
furosemide 20 mg Tablet
20 mg PO DAILY Qty: 30 0RF
Eliquis 5 mg Tablet
5 mg PO BID Qty: 60 0RF
Continued
atorvastatin 40 MG tablet
40 mg PO DAILY
metformin 500 mg Tablet
500 mg PO BID
lisinopril 10 mg Tablet
10 mg PO DAILY
omeprazole 20 mg Tablet,Delayed Release (Dr/Ec)
20 mg PO DAILY
Discontinued
pioglitazone-metformin [Actoplus MET] 1 EACH tablet
1 tab PO BID
Discharge Orders:
Discharge Patient (As Directed); Ordered 12/13/24
Ordered By: Ronald Crump
Discharge Date and Time
Print Language: CYPRIOT
[2024-12-13] MEDS: MIRALAX 17 GRAMS PO (11:04)
--- NOTE | 2024-12-13 11:11 | CM ---
Patient for d/c home today.
IMM completed.
[facility] will transport.
No home care needs.
Plan: home no needs.
[2024-12-13 11:48] VITALS: BP 153/61
--- NOTE | 2024-12-13 13:25 | CM ---
Patient seen bedside.
IMM reviewed and signed.
Denied home care needs.
Reviewed possible CHF/Afib management and cardiac rehab. TC to [facility] cardiac rehab and they recommended possible rehab at a phase 3 cardiac rehab, she will discuss with cardiology at appointment Tuesday.
[facility] will transport home.
Plan: home no needs.
== END 2024-12-13 12:46 | disposition home or self-care (01) | DRG 291 ==
LOC: 4 EAST ACU 22:28
PROVIDERS: Nurse Practitioner Family; Physician Assistant; ADMITTING PHYSICIAN Internal Medicine; ATTENDING PHYSICIAN Internal Medicine; CONSULT PHYSICIAN Internal Medicine Cardiovascular Disease; EMERGENCY PHYSICIAN Emergency Medicine; FAMILY PHYSICIAN Family Medicine
DX: I11.0 Hypertensive heart disease with heart failure (principal); I50.31 Acute diastolic (congestive) heart failure; N17.9 Acute kidney failure, unspecified; I48.0 Paroxysmal atrial fibrillation; I44.1 Atrioventricular block, second degree; E78.00 Pure hypercholesterolemia, unspecified; E11.9 Type 2 diabetes mellitus without complications; K21.9 Gastro-esophageal reflux disease without esophagitis; K59.00 Constipation, unspecified; E83.42 Hypomagnesemia; D64.9 Anemia, unspecified; E53.8 Deficiency of other specified B group vitamins; D72.819 Decreased white blood cell count, unspecified; I06.0 Rheumatic aortic stenosis; R07.89 Other chest pain; Z79.84 Long term (current) use of oral hypoglycemic drugs; Z79.899 Other long term (current) drug therapy; Z87.891 Personal history of nicotine dependence
CPT/HCPCS: 71275; 80048; 80053; 80061; 82607; 82728; 82746; 82962; 83036; 83540; 83550; 83735; 83880; 84100; 84443; 84484; 85025; 85027; 85045; 85730; 86803; 93005; 93306; 93971; Q9967

== ENCOUNTER → 2024-12-20 07:17 | Outpatient (REF) | payer MEDICARE, OTHER, SELFPAY ==
[2024-12-20 07:59] LABS: Hematocrit 32.8 % (37.0-47.0); Hemoglobin 10.5 g/dL (12.0-16.0); Mean Corp Hgb Conc. 32.0 g/dL (33.0-37.0); Mean Corpuscular Volume 90.6 fL (81.0-99.0); Nucleated Red Blood Cells % 0 %; Platelet Count 270 10^3/uL (130-400); Red Cell Dist. Width 14.0 % (11.5-14.5)
[2024-12-20 08:39] LABS: Blood Urea Nitrogen 25 mg/dl (7-17); Calcium 9.6 mg/dl (8.4-10.2); Carbon Dioxide 25 mmol/L (22-30); Chloride 101 mmol/L (98-107); Glucose 128 mg/dl (70-99); Potassium 5.1 mmol/L (3.5-5.1); Sodium 135 mmol/L (135-145); eGFR 58.39
[2024-12-20 09:31] LABS: Glycohemoglobin (HgbA1c) 6.0 % (4.0-5.6)
== END ==
LOC: REG 07:17
PROVIDERS: ATTENDING PHYSICIAN Nurse Practitioner; FAMILY PHYSICIAN Family Medicine
DX: E11.9 Type 2 diabetes mellitus without complications (principal); I48.0 Paroxysmal atrial fibrillation
CPT/HCPCS: 36415; 80048; 83036; 85025

== ENCOUNTER → 2025-02-18 08:41 | Outpatient (REF) | payer MEDICARE, OTHER, SELFPAY ==
[2025-02-18 09:22] LABS: Hematocrit 34.6 % (37.0-47.0); Hemoglobin 11.6 g/dL (12.0-16.0); Mean Corp Hgb Conc. 33.5 g/dL (33.0-37.0); Mean Corpuscular Volume 85.4 fL (81.0-99.0); Nucleated Red Blood Cells % 0 %; Platelet Count 230 10^3/uL (130-400); Red Cell Dist. Width 13.1 % (11.5-14.5)
[2025-02-18 09:29] LABS: INR 1.13; PT 14.9 Sec (11.4-14.6)
[2025-02-18 10:37] LABS: ALT (SGPT) 26 U/L (0-35); AST (SGOT) 49 U/L (14-36); Albumin 4.9 g/dl (3.5-5.0); Alkaline Phosphatase 108 U/L (38-126); Blood Urea Nitrogen 15 mg/dl (7-17); Calcium 9.0 mg/dl (8.4-10.2); Carbon Dioxide 25 mmol/L (22-30); Chloride 102 mmol/L (98-107); Glucose 141 mg/dl (70-99); Magnesium 0.9 mg/dl (1.6-2.3); Potassium 5.2 mmol/L (3.5-5.1); Sodium 139 mmol/L (135-145); Total Protein 9.1 g/dl (6.3-8.2); eGFR > 60.00
== END ==
LOC: SDSPAT 08:41
PROVIDERS: ATTENDING PHYSICIAN Internal Medicine Cardiovascular Disease; FAMILY PHYSICIAN Family Medicine; OTHER PHYSICIAN Internal Medicine Cardiovascular Disease
DX: I48.0 Paroxysmal atrial fibrillation (principal)
CPT/HCPCS: 36415; 75572; 80053; 83735; 85025; 85610; 86850; 86900; 86901; 93005; Q9967

== ENCOUNTER 2025-03-14 05:52 | Day surgery (SDC) | payer MEDICARE, OTHER, SELFPAY ==
[2025-02-18 08:55] VITALS: BMI 30.7
[2025-03-14] VITALS (10 sets, daily range): BP systolic 95–146; BP diastolic 46–79
[2025-03-14 06:44] LABS: Glucose - Point of Care 115 mg/dl (70-99)
[2025-03-14 07:01] LABS: Magnesium 1.2 mg/dl (1.6-2.3)
--- NOTE | 2025-03-14 09:18 | ITS.CL.ABL ---
Denture Technician - Ablation
Ablation
Procedure Report:
ELECTROPHYSIOLOGY ABLATION STUDY
DATE:: March 14, 2025�����������������������������REFERRING: Dr. Edmund De La Rosa
INDICATION: Paroxysmal supraventricular tachycardia in the form of atrial fibrillation.��As above
HISTORY: See H and P.��As above
ANTIARRHYTHMIC DRUG: No antiarrhythmic drug therapy due to first-degree AV block and sick sinus syndrome
PRE-PROCEDURE NASIM: No atrial thrombus on intracardiac ultrasound
PRESENTING RHYTHM: Sinus bradycardia
'TIME-OUT':��called and confirmed.
SEDATION/ANESTHESIA:��provided via the anesthesia department using general anesthesia (LMA).
INTRAVENOUS/ARTERIAL ACCESS:
Right femoral venous -8Fr
Left femoral venous - 8 Fr, 6 Fr
Desobc-yr-imnuc suture bilaterally
Ultrasound guidance for bilateral femoral vein access was utilized by me to obtain access with demonstration of normal anatomy
CHADS-VASC Score:
HAS-Bled Score
PROCEDURE:
1.��A decapolar CS catheter was placed within the CS for mapping and pacing.��This was also used as the reference catheter for the 3-D map.
2. The intracardiac ultrasound catheter was positioned in the RA to identify the FO for targeting of transseptal puncture, assist��in identification of the pulmonary vein ostia, monitoring pre and post ablation pulmonary vein flow velocities,
monitoring for 'bubble' formation during RF application as a sign of thermal injury,��and to monitor for pericardial effusion during mapping and ablation procedure.���Left atrial size, LV ejection fraction, and pulmonary vein flows were monitored
pre and post ablation procedure. The other valves were inspected and found to be free of significant regurgitation or stenosis.
3.��Half of the calculated heparin bolus was administered prior to the first transeptal puncture.��Transseptal puncture was performed to diagnose RA and LA pressure so that safetey of LA mapping and ablation could be further assessed, and to access
the left atrium and pulmonary veins for mapping and ablation.��This entailed advancing an 10 [place] steerable sheath with dilator into the superior vena cava and withdrawing both (monitoring intracardiac ultrasound, fluoroscopy and tip pressure)
with the tip oriented toward the atrial septum.��The fossa ovalis was engaged (indicated by sudden displacement of the sheath tip as well as tenting of the fossa seen on intracardiac ultrasound).��Left atrial access required a pass with the
Brockenbrough needle extended.��Left atrial catheter position was confirmed by pressure monitoring (RA mean pressure 4 mm Hg and LA mean presure 12 mm Hg), LA saturation (99%),��as well as fluoroscopy.��The sheath was advanced over the dilator and
positioned in the left atrium.��This procedure was repeated for the Agilis sheath.��The remainder of the calculated heparin bolus was administered and heparin was
infused to maintain ACT at 300 -350 seconds throughout the case.
4.��RA pacing was performed via the proximal decapolar poles and LA pacing was performed via the distal decapolar poles.
5. A decapolar catheter was first positioned at the His position for His Bundle recording which was tagged via the 3-D [employer], and then passed to the RVA for RV pacing and recording.
6. The 9 mm lattice catheter was placed in each of the LIPV, LSPV, RSPV and the RIPV.��
7.��Next, a 3-D map was created using [employer].
8. Point by point point lesions were given in a wide circumferential area around the left pulmonary veins and right pulmonary veins leading to entrance and exit block of both sets of pulmonary veins. Posterior wall box lesion set was then given
with the roofline floor line and posterior wall lesion set rendering the posterior wall of the left atrium electrically silent. Post procedure EP study demonstrated no inducible tachyarrhythmia with burst pacing, atrial extrastimuli, and AV Wenke
block pacing. Patient was noted to have AV Wenckebach at 620 ms with block in the AH.
9. Normal sinus node function with normal corrected sinus node recovery time
TOTAL FLOURO TIME: 11 minutes 103 mGy
TOTAL RF DURATION: 0 minutes
REVERSAL OF HEPARIN: 40 mg of protamine, slow IV administration
COMPLICATIONS:
None
Intracardiac US shows no pericardial effusion post ablation.
SUMMARY:��
Complex left atrial mapping and ablation.
[ ]
RECOMMENDATIONS:
1. Ambulate in 4 hours
2. Resume anticoagulation
3.��Consider same-day discharge
4.��Outpatient follow-up with me in the office
Copy to: Dr. Juan Jose De La Rosa
[2025-03-14] MEDS: ANESTHETIC LOZENGE 1 LOZENGE PO (09:57)
--- NOTE | 2025-03-14 14:14 | W.PN.UPDATE ---
Update Note
Progress Note Update
74 yo WF s/p PVI (same day). She denies sob, mild chest tightness, voiding, amb w/o dizziness, EKG SR 1 deg AVB, b/l groins c/d/i no HT, soft. She will resume Eliquis tonight. Activity restrictions reviewed. Her Mag was 1.2 and was given IV mag by
anestheia during the case, she will continue PO mag at d/c. She will f/u Dr. De La Rosa in 3 mo. She is for d/c home after 2p if groins stable.
== END 2025-03-14 14:00 | disposition home or self-care (01) ==
LOC: CATH 05:52
PROVIDERS: ATTENDING PHYSICIAN Internal Medicine Cardiovascular Disease; FAMILY PHYSICIAN Family Medicine
DX: I48.0 Paroxysmal atrial fibrillation (principal); I11.0 Hypertensive heart disease with heart failure; E11.9 Type 2 diabetes mellitus without complications; E61.2 Magnesium deficiency; E66.9 Obesity, unspecified; E78.5 Hyperlipidemia, unspecified; E83.42 Hypomagnesemia; I25.10 Atherosclerotic heart disease of native coronary artery without angina pectoris; I35.0 Nonrheumatic aortic (valve) stenosis; I44.0 Atrioventricular block, first degree; I47.10 Supraventricular tachycardia, unspecified; I49.5 Sick sinus syndrome; Z85.820 Personal history of malignant melanoma of skin; K76.0 Fatty (change of) liver, not elsewhere classified; R74.01 Elevation of levels of liver transaminase levels; K44.9 Diaphragmatic hernia without obstruction or gangrene; H81.10 Benign paroxysmal vertigo, unspecified ear; D64.9 Anemia, unspecified; L40.9 Psoriasis, unspecified; M85.80 Other specified disorders of bone density and structure, unspecified site; Z86.0100 Personal history of colon polyps, unspecified; K80.20 Calculus of gallbladder without cholecystitis without obstruction; Z79.899 Other long term (current) drug therapy; Z79.01 Long term (current) use of anticoagulants; Z79.84 Long term (current) use of oral hypoglycemic drugs; I50.9 Heart failure, unspecified; Z68.30 Body mass index [BMI] 30.0-30.9, adult; Z87.891 Personal history of nicotine dependence
CPT/HCPCS: C1730; C1894; C1733; C1766; C1892; C1759; 82962; 83735; 85347; 86900; 86901; 93005; 93656; 93657